=== PATIENT | male | born 1930 | race Caucasian/White ===

== ENCOUNTER → 2018-11-09 | Outpatient (CLI) | payer MEDICARE, OTHER ==
[~2018-11-09] MED LIST: ATEN100T PO; ATOR20TA65 PO; CLIN300C9 PO; DIGO125T87 PO; RIVA15TA PO; SPIR25TA6 PO; TAMS0.4C32 PO
== END | disposition home or self-care (01) ==
LOC: SHCH 11:37
PROVIDERS: ATTEND Internal Medicine Cardiovascular Disease
DX: I34.0 Nonrheumatic mitral (valve) insufficiency (principal); I47.2 Ventricular tachycardia; I48.0 Paroxysmal atrial fibrillation; Z95.0 Presence of cardiac pacemaker
CPT/HCPCS: 93306